=== PATIENT | male | born 1965 | race Caucasian/White ===

== ENCOUNTER → 2023-04-24 | Day surgery (SDC) | payer OTHER ==
[~2023-04-24] VITALS: Ht 180.3 cm; Wt 79.8 kg
[~2023-04-24] MED LIST: FENTANYL CITRATE/PF 50MCG/ML 2ML VIAL ONE; HYDROMORPHONE HCL/PF 2MG/ML CPJ IV PRN; IOHEXOL-300 100 ML BOTTLE ONE; KETOROLAC 15MG/ML VIAL IV PRN; LABETALOL 5MG/ML SYR 20 MG/4 ML SYRINGE IV PRN; LACTATED RINGERS 1,000 ML IV ONE; MELA5TAB19 PO; MEPERIDINE HCL/PF 25MG/ML CPJ IV PRN; MIDAZOLAM HCL 2 MG/2 ML VIAL ONE; ONDANSETRON HCL 4MG/2ML INJ IV PRN; PROPOFOL 200MG/20ML VIAL IV ONE; SODIUM CHLORIDE 0.9% 1,000 ML IV ONE
== END | disposition home or self-care (01) ==
LOC: OR 07:04
PROVIDERS: ATTEND Urology
DX: N13.2 Hydronephrosis with renal and ureteral calculous obstruction (principal); E78.00 Pure hypercholesterolemia, unspecified; Z79.899 Other long term (current) drug therapy; Z98.890 Other specified postprocedural states
CPT/HCPCS: 52332; 71045; 74021; 74420; 93005; J3010; Q9967; J2250; J2704; C2617; C1769; 76000

== ENCOUNTER → 2023-05-15 | Day surgery (SDC) | payer OTHER ==
[~2023-05-15] VITALS: Ht 180.3 cm; Wt 79.8 kg
[~2023-05-15] MED LIST changes: +ATROPINE SULFATE 0.4MG/ML VIAL IV PRN; +FENTANYL CITRATE/PF 50MCG/ML 2ML VIAL IV PRN; +GENTAMICIN SULF 40MG/ML 2ML VIAL ONE; -HYDROMORPHONE HCL/PF 2MG/ML CPJ IV PRN; -IOHEXOL-300 100 ML BOTTLE ONE; +KETOROLAC 15MG/ML VIAL IV NR; -KETOROLAC 15MG/ML VIAL IV PRN; -LABETALOL 5MG/ML SYR 20 MG/4 ML SYRINGE IV PRN; -LACTATED RINGERS 1,000 ML IV ONE; +LACTATED RINGERS 1,000 ML IV SCH; +LIDOCAINE HCL 1% 10 MG/ML 10ML VIAL ONE; +MORPHINE SULFATE 2 MG/ML CPJ (NOT FOR IM USE) IV PRN; -SODIUM CHLORIDE 0.9% 1,000 ML IV ONE
[2023-05-15 14:15] VITALS: BP 146/88; PULSE 58; RESP 22
== END | disposition home or self-care (01) ==
LOC: OR 10:25
PROVIDERS: ATTEND Urology
DX: N13.2 Hydronephrosis with renal and ureteral calculous obstruction (principal); E78.00 Pure hypercholesterolemia, unspecified; Z79.899 Other long term (current) drug therapy; Z98.890 Other specified postprocedural states; Z85.118 Personal history of other malignant neoplasm of bronchus and lung; Z83.3 Family history of diabetes mellitus
CPT/HCPCS: 52353; 74021; 88300; J3010; J1580; J1885; J3490; J2250; J2704; C1769; 76000